=== PATIENT | female | born 1975 | race African-American/Black ===

== ENCOUNTER 2020-08-12 22:31 | Inpatient (IN) | payer SELFPAY ==
[~2020-08-12] VITALS: Ht 165.1 cm; Wt 92.1 kg
[2020-08-12] MEDS ORDERED: ONDANSETRON HCL 4MG/2ML INJ IV STA (23:18)
[2020-08-12] MEDS ORDERED: SODIUM CHLORIDE 0.9% 1,000 ML IV ONE (23:30)
[2020-08-12] MEDS ORDERED: LEVETIRACETAM 500MG PREMIX 100 ML IV ONE (23:30)
[2020-08-12 23:38] LABS: BASOPHILS % 0.8 % (0.0-2.0); EOSINOPHILS % 3.9 % (0.0-5.0); HEMATOCRIT. 38.5 % (36.0-48.0); HEMOGLOBIN. 12.5 g/dL (12.0-16.0); LYMPHOCYTES % 32.1 % (20.0-50.0); MEAN CORPUSCULAR HEMOGLOBIN 27.7 pg (28.0-32.0); MEAN CORPUSCULAR VOLUME 85.1 fL (81.0-99.0); MEAN PLATELET VOLUME 9.6 fl (7.4-10.4); MONOCYTES % 11.4 % (2.0-8.0); NEUTROPHILS % 51.8 % (40.0-76.0); PLATELET 177 x1000/uL (130-400); RED BLOOD CELL COUNT 4.52 mill/uL (4.2-5.4); RED CELL DISTRIBUTION WIDTH 13.2 % (11.6-14.6)
[2020-08-12 23:42] LABS: CHLORIDE 109 mEq/L (98-107)
[2020-08-12 23:46] LABS: ETHANOL BLOOD < 10 mg/dL
[2020-08-12 23:47] LABS: HCG SCREEN NEGATIVE
[2020-08-13 02:26] LABS: *BARBITURATES SCREEN URINE NEGATIVE (NEGATIVE); *BENZODIAZEPINES SCREEN URINE NEGATIVE (NEGATIVE)
[2020-08-13 02:27] LABS: *COCAINE SCREEN URINE NEGATIVE (NEGATIVE); CANNABINOID URINE SCREEN NEGATIVE (NEGATIVE); METHADONE URINE SCREEN NEGATIVE (NEGATIVE); OPIATES URINE SCREEN NEGATIVE (NEGATIVE); PHENCYCLIDINE URINE SCREEN NEGATIVE (NEGATIVE)
[2020-08-13 02:34] LABS: *AMPHETAMINES SCREEN URINE PRESUMTIVE POSITIVE (NEGATIVE)
[2020-08-13 06:20] VITALS: BP 124/80
[2020-08-13 06:22] VITALS: BP 142/80
[2020-08-13] MEDS ORDERED: ACETAMINOPHEN 325MG TABLET PO PRN (09:00)
[2020-08-13] MEDS ORDERED: LORAZEPAM 2MG/ML CPJ IV PRN (09:00)
[2020-08-13] MEDS ORDERED: ONDANSETRON HCL 4MG/2ML INJ IV PRN (09:00)
[2020-08-13 12:00] VITALS: BP 124/73
[2020-08-13] MEDS: LEVETIRACETAM 500MG TABLET PO SCH ×2 (12:19→20:43)
[2020-08-13 16:00] VITALS: BP 118/73
[2020-08-13 20:00] VITALS: BP 145/81
[2020-08-14] VITALS: BP 130/85
[2020-08-14 04:00] VITALS: BP 110/80
[2020-08-14 08:00] VITALS: BP 134/84
[2020-08-14] MEDS: LEVETIRACETAM 500MG TABLET PO SCH (09:54)
[2020-08-14 11:58] VITALS: BP 115/72
[2020-08-14] MEDS ORDERED: BENZONATATE 100MG CAPSULE PO PRN (12:45)
[2020-08-14 15:42] VITALS: BP 110/70
[2020-08-14 17:01] VITALS: BP 110/70
== END 2020-08-14 18:10 | disposition home or self-care (01) | DRG 53 ==
LOC: ER 22:31 → ENRESERV 08-13 05:31 → 8WST 08-13 06:23
PROVIDERS: ADMIT Internal Medicine; ATTEND Internal Medicine
DX: G40.409 Other generalized epilepsy and epileptic syndromes, not intractable, without status epilepticus (principal); E44.1 Mild protein-calorie malnutrition; E66.9 Obesity, unspecified; E87.8 Other disorders of electrolyte and fluid balance, not elsewhere classified; J45.909 Unspecified asthma, uncomplicated; F15.10 Other stimulant abuse, uncomplicated; Z59.0 Homelessness; Z86.73 Personal history of transient ischemic attack (TIA), and cerebral infarction without residual deficits; Z68.33 Body mass index [BMI] 33.0-33.9, adult; Z88.1 Allergy status to other antibiotic agents; Z88.0 Allergy status to penicillin; Z90.710 Acquired absence of both cervix and uterus; Z79.899 Other long term (current) drug therapy
CPT/HCPCS: 36415; 71045; 80053; 80305; 80320; 84703; 85025; 93005; 99285; J1953; J2405; J7030; G0480

== ENCOUNTER 2020-08-21 11:42 | Emergency (ER) | payer MEDICAID ==
[~2020-08-21] VITALS: Ht 167.6 cm; Wt 75.0 kg
[2020-08-21] MEDS ORDERED: PHEN-434 PO (11:46)
[2020-08-21] MEDS ORDERED: ALBUTEROL (0.083%) 2.5MG/3ML NEB HHN ONE (12:15)
[2020-08-21] MEDS ORDERED: LEVETIRACETAM 500MG PREMIX 100 ML IV ONE (12:15)
[2020-08-21] MEDS ORDERED: LORAZEPAM 2MG/ML CPJ IV ONE (12:15)
[2020-08-21 12:54] LABS: CLARITY URINE CLEAR (CLEAR); COLOR URINE YELLOW (YELLOW); KETONES URINE NEGATIVE (NEGATIVE); LEUKOCYTE ESTERASE URINE NEGATIVE (NEGATIVE); NITRITE URINE NEGATIVE (NEGATIVE); OCCULT BLOOD URINE NEGATIVE (NEGATIVE); PROTEIN URINE NEGATIVE (NEGATIVE); SPECIFIC GRAVITY URINE 1.013 (1.005-1.030); UROBILINOGEN URINE 0.2 E.U./dL (0.2-1.0)
[2020-08-21 12:58] LABS: BASOPHILS % 0.7 % (0.0-2.0); EOSINOPHILS % 3.5 % (0.0-5.0); HEMATOCRIT. 42.8 % (36.0-48.0); HEMOGLOBIN. 13.9 g/dL (12.0-16.0); LYMPHOCYTES % 27.7 % (20.0-50.0); MEAN CORPUSCULAR HEMOGLOBIN 27.4 pg (28.0-32.0); MEAN CORPUSCULAR VOLUME 84.2 fL (81.0-99.0); MEAN PLATELET VOLUME 10.1 fl (7.4-10.4); MONOCYTES % 7.7 % (2.0-8.0); NEUTROPHILS % 60.4 % (40.0-76.0); PLATELET 173 x1000/uL (130-400); RED BLOOD CELL COUNT 5.09 mill/uL (4.2-5.4); RED CELL DISTRIBUTION WIDTH 13.5 % (11.6-14.6)
[2020-08-21 13:03] LABS: CHLORIDE 107 mEq/L (98-107)
[2020-08-21 13:10] LABS: HCG SCREEN NEGATIVE
[2020-08-21 15:38] VITALS: BP 125/84
== END 2020-08-21 16:01 | disposition home or self-care (01) ==
LOC: ER 12:40
DX: R56.9 Unspecified convulsions (principal); J45.909 Unspecified asthma, uncomplicated; Z88.0 Allergy status to penicillin; Z88.1 Allergy status to other antibiotic agents
CPT/HCPCS: 36415; 71045; 80053; 81003; 81025; 82962; 84703; 85025; 93005; 96374; 96375; 99285; J1953; J2060

== ENCOUNTER 2022-02-14 09:59 | Emergency (ER) | payer MEDICAID ==
[~2022-02-14] VITALS: Ht 167.6 cm; Wt 80.0 kg
[~2022-02-14 09:59] MED LIST: PHEN-434 PO
[2022-02-14] MEDS ORDERED: ALBUTEROL (10:04)
[2022-02-14] MEDS ORDERED: SEROQUEL (10:04)
[2022-02-14] MEDS ORDERED: KEPPRA (10:04)
[2022-02-14 10:56] LABS: BASOPHILS % 1.4 % (0.0-2.0); EOSINOPHILS % 2.2 % (0.0-5.0); HEMATOCRIT. 35.9 % (36.0-48.0); HEMOGLOBIN. 11.5 g/dL (12.0-16.0); LYMPHOCYTES % 32.4 % (20.0-50.0); MEAN CORPUSCULAR HEMOGLOBIN 26.9 pg (28.0-32.0); MEAN CORPUSCULAR VOLUME 84.1 fL (81.0-99.0); MEAN PLATELET VOLUME 9.8 fl (7.4-10.4); MONOCYTES % 11.4 % (2.0-8.0); NEUTROPHILS % 52.6 % (40.0-76.0); PLATELET 257 x1000/uL (130-400); RED BLOOD CELL COUNT 4.28 mill/uL (4.2-5.4); RED CELL DISTRIBUTION WIDTH 14.4 % (11.6-14.6)
[2022-02-14 11:04] LABS: CHLORIDE 108 mEq/L (98-107)
[2022-02-14 11:13] LABS: HCG SCREEN NEGATIVE
[2022-02-14 15:01] VITALS: BP 117/72
== END 2022-02-14 15:02 | disposition home or self-care (01) ==
LOC: ER 10:23
DX: G40.909 Epilepsy, unspecified, not intractable, without status epilepticus (principal); J45.909 Unspecified asthma, uncomplicated; Z88.0 Allergy status to penicillin
CPT/HCPCS: 36415; 80053; 84703; 85025; 99283

== ENCOUNTER 2024-02-05 00:57 | Emergency (ER) | payer MEDICAID ==
[~2024-02-05] VITALS: Ht 167.6 cm; Wt 95.0 kg
[~2024-02-05 00:57] MED LIST changes: +ALBUTEROL; +KEPPRA; +SEROQUEL
[2024-02-05 01:00] VITALS: O2SAT 100
[2024-02-05] MEDS: LEVETIRACETAM 500MG PREMIX 100 ML IV ONE (01:21)
[2024-02-05 01:34] LABS: BASOPHILS % 0.6 % (0.0-2.0); EOSINOPHILS % 2.9 % (0.0-5.0); HEMATOCRIT. 38.8 % (36.0-48.0); HEMOGLOBIN. 12.7 g/dL (12.0-16.0); LYMPHOCYTES % 29.9 % (20.0-50.0); MEAN CORPUSCULAR HEMOGLOBIN 27.6 pg (28.0-32.0); MEAN CORPUSCULAR HGB CONC 32.8 g/dL (31.0-37.0); MEAN CORPUSCULAR VOLUME 84.2 fL (81.0-99.0); MONOCYTES % 10.1 % (2.0-8.0); NEUTROPHILS % 56.5 % (40.0-76.0); PLATELET 219 x1000/uL (130-400); RED CELL DISTRIBUTION WIDTH 13.4 % (11.6-14.6)
[2024-02-05 01:42] LABS: CHLORIDE 105 mEq/L (98-107); POTASSIUM 4.1 mEq/L (3.5-5.1); SODIUM 139 mEq/L (136-145)
[2024-02-05 01:44] LABS: CALCIUM 9.9 mg/dL (8.7-10.4); CARBON DIOXIDE 25 mEq/L (21-32)
[2024-02-05 01:48] LABS: HCG SCREEN NEGATIVE
[2024-02-05 01:49] LABS: CREATININE 0.8 mg/dL (0.6-1.0); GLUCOSE 94 mg/dL (70-105); UREA NITROGEN BLOOD 11 mg/dL (9-23)
[2024-02-05 01:51] LABS: ETHANOL BLOOD < 10 mg/dL (<10)
[2024-02-05] MEDS ORDERED: KEPP500 MT (03:32)
[2024-02-05 03:47] VITALS: BP 142/78; PULSE 83; RESP 20; TEMP 98.2
== END 2024-02-05 04:37 | disposition home or self-care (01) ==
LOC: ER 00:57
DX: G40.909 Epilepsy, unspecified, not intractable, without status epilepticus (principal); J45.909 Unspecified asthma, uncomplicated; Z88.0 Allergy status to penicillin; Z88.1 Allergy status to other antibiotic agents; Z91.148 Patient's other noncompliance with medication regimen for other reason
CPT/HCPCS: 80048; 80320; 82962; 84703; 85025; 36415; 96365; 99284; J1953; Z7610 ×2; G0480

== ENCOUNTER 2024-09-07 17:18 | Emergency (ER) | payer MEDICAID ==
[~2024-09-07] VITALS: Ht 165.1 cm; Wt 99.7 kg
[~2024-09-07 17:18] MED LIST changes: +KEPP500 MT
[2024-09-07 17:19] VITALS: O2SAT 99
[2024-09-07 18:29] VITALS: BP 117/78; PULSE 94; RESP 16; TEMP 98.9; O2SAT 99
== END 2024-09-07 22:38 | disposition left against medical advice (07) ==
LOC: ER 17:18
DX: S09.90XA Unspecified injury of head, initial encounter (principal); Z53.21 Procedure and treatment not carried out due to patient leaving prior to being seen by health care provider; X58.XXXA Exposure to other specified factors, initial encounter; Y93.9 Activity, unspecified; Y92.89 Other specified places as the place of occurrence of the external cause; Y99.8 Other external cause status